=== PATIENT | female | born 1985 | race Caucasian/White ===

== ENCOUNTER 2016-09-07 15:06 | Emergency (ER) | payer MEDICAID ==
--- NOTE | 2016-09-07 15:18 | ER Document Report ---
ED Medical Screen (RME) - General Stated Complaint: COUGH/FEVER Mode of Arrival: Ambulatory Information source: Patient Notes: Patient presents with cough, congestion, fever and body aches for the past 10 days. Patient reports fever of 103 at home. hx: Asthma I have greeted and performed a rapid initial assessment of this patient. A comprehensive ED assessment and evaluation of the patient, analysis of test results and completion of the medical decision making process will be conducted by additional ED providers. Physical Exam - Respiratory Respiratory status: No respiratory distress Breath sounds: Nonproductive cough, Rhonchi
[2016-09-07] MEDS ORDERED: PREDNISONE 20 MG TABLET PO ONE (16:12)
[2016-09-07] MEDS ORDERED: IPRATROPIUM/ALBUTEROL 0.5-2.5 MG/3 ML AMPUL NEB ONE (16:12)
--- NOTE | 2016-09-07 16:32 | ER Document Report ---
HPI - HPI Patient complains to provider of: cough, congestion Onset: Other Onset/Duration: Gradual - 1-1/2 weeks Pain Level: 0 Context: 30-year-old female ex smoker complaining of cough, congestion for week and a half. She has an albuterol metered-dose inhaler and she used an nebulizer treatment yesterday. Intermittent fever. Still has myalgias. No nausea vomiting or diarrhea. No rash. Associated Symptoms: None Exacerbated by: Denies Relieved by: Denies Similar symptoms previously: No Recently seen / treated by doctor: No - ROS ROS below otherwise negative: Yes Systems Reviewed and Negative: Yes All other systems reviewed and negative - DERM Skin Color: Normal Past Medical History - General Information source: Patient - Social History Smoking Status: Former Smoker Chew tobacco use (# tins/day): No Frequency of alcohol use: None Drug Abuse: None Lives with: Family Family History: Reviewed & Not Pertinent Patient has suicidal ideation: No Patient has homicidal ideation: No Pulmonary Medical History: Reports: Hx Bronchitis Renal/ Medical History: Denies: Hx Peritoneal Dialysis Surgical Hx: Negative Vertical Provider Document - CONSTITUTIONAL Agree With Documented VS: Yes Exam Limitations: No Limitations General Appearance: No Apparent Distress - INFECTION CONTROL TRAVEL OUTSIDE OF THE [place] IN LAST 30 DAYS: No - HEENT HEENT: Pharyngeal Erythema. negative: Conjuctival Injection, Tympanic Membrane Red, Tympanic Membrane Bulging Notes: boggy nares - NECK Neck: Supple. negative: Lymphadenopathy-Left, Lymphadenopathy-Right - RESPIRATORY Respiratory: Breath Sounds Normal, No Respiratory Distress O2 Sat by Pulse Oximetry: 98 - CARDIOVASCULAR Cardiovascular: Regular Rate, Regular Rhythm - GI/ABDOMEN Gastrointestinal: Abdomen Soft, Abdomen Non-Tender, No Organomegaly - MUSCULOSKELETAL/EXTREMETIES Musculoskeletal/Extremeties: MAEW, FROM - NEURO Level of Consciousness: Awake, Alert - DERM Integumentary: Warm, Dry, No Rash Course - Re-evaluation Re-evalutation: 09/07/16 16:32 Chest x-ray is negative. Willl refill her albuterol Nebules and treat her with steroids for a few days. 09/07/16 16:48 moving are better afte the neb, no rales or wheeze. - Vital Signs Vital signs: Temp Pulse Resp BP Pulse Ox 98.1 F 105 H 15 131/88 H 98 02/18/17 15:18 09/07/16 15:18 09/07/16 15:18 09/07/16 15:18 09/07/16 15:18 Discharge - Discharge Clinical Impression: Bronchitis Condition: Good Disposition: HOME, SELF-CARE Instructions: Acetaminophen, Inhaled Bronchodilators ([facility]), Steroid Medication , Bronchitis ([facility]) Additional Instructions: Plenty of fluids Rereturn to the emergency room if worse Prescriptions: Albuterol Sulfate [Ventolin 0.083% Neb 2.5 mg/3 mL Ampul] 2.5 mg NEB Q3HP PRN # 25 vial PRN Reason: Albuterol Sulfate [Proair HFA Inhalation Aerosol 8.5 gm MDI] 2 puff IH Q3HP PRN #1 hfa.aer.ad PRN Reason: Prednisone [Deltasone 20 mg Tablet] 40 mg PO DAILY #8 tablet Forms: Return to Work
[2016-09-07 18:03] VITALS: BP 127/82
== END 2016-09-07 17:59 | disposition home or self-care (01) ==
LOC: ER 15:06
DX: J40 Bronchitis, not specified as acute or chronic (principal); M79.1 Myalgia; Z87.891 Personal history of nicotine dependence
CPT/HCPCS: 94640; 99283; 71020; J7512; J7620